=== PATIENT | male | born 1945 | race Caucasian/White ===

== ENCOUNTER 2016-08-27 10:55 | Observation (INO) | payer OTHER, BC ==
[~2016-08-27] VITALS: Ht 185.4 cm; Wt 106.0 kg
[~2016-08-27 10:55] MED LIST: AVELOX400 MG PO; CENTRUM SILVER1 EAC3 PO; ECOTRIN325 MG PO; Flonase BOTH NARES; Humibid LA,Mucinex PO; LISINOPRIL40 MG PO; LOPRESSOR50 MG PO; OMEPRAZOLE40 M1 PO; PROMETHAZINE-CODEINE; SIMVASTATIN40 MG PO; VIAGRA100 MG PO; ZYRTEC10 M2 PO; Zestril,Prinivil PO; predniSONE PO
[2016-08-27 11:29] LABS: EOSINOPHIL COUNT 0.6 K/uL (0-0.3); IMMATURE GRANULOCYTE (%) 0.1 % (0.0-0.7); IMMATURE GRANULOCYTE COUNT 0.1 K/uL; LYMPHOCYTE COUNT 1.6 K/uL (1.0-2.8); MCH 31.9 PG (29.0-34.0); MCHC 34.6 G/DL (30.0-36.0); MCV 92.2 FL (86-99); MONOCYTE (%) 11.1 % (3-12); MONOCYTE COUNT 0.9 K/uL (0-0.8); NEUTROPHIL (%) 59.9 % (45-76); NEUTROPHIL COUNT 4.8 K/uL (1.8-6.4); PLATELET COUNT 182 K/uL (156-360); RBC DIS.WIDTH-CV 12.2 % (11.8-14.6); RBC DIS.WIDTH-SD 40.3 % (39-53); RED BLOOD COUNT 4.99 M/uL (4.00-5.50)
[2016-08-27 11:39] LABS: PROTHROMBIN TIME 10.3 (9.2-11.2); PTT 27.1 (25-32)
[2016-08-27 11:42] LABS: CHLORIDE 105 mEq/L (99-109); POTASSIUM 4.4 mEq/L (3.7-5.4); SODIUM 140 mEq/L (136-147)
[2016-08-27 11:43] LABS: MAGNESIUM 2.1 mg/dL (1.3-2.7)
[2016-08-27 11:44] LABS: GLUCOSE 97 mg/dL (70-99)
[2016-08-27 11:46] LABS: ANION GAP 9 MEQ/L (2-14)
[2016-08-27 11:48] LABS: GFR ESTIMATE (CALCULATED) > 59 mL/min/
[2016-08-27 11:49] LABS: UREA NITROGEN (BUN) 21 mg/dL (9-23)
[2016-08-27 11:50] LABS: TROP-I INTERPRETATION NEGATIVE; TROPONIN-I < 0.01 ng/mL (0.0-0.30)
[2016-08-27] MEDS ORDERED: LISINOPRIL10 MG PO (16:35)
[2016-08-27] MEDS ORDERED: FLONASE16 G1 BOTH NARES (16:36)
[2016-08-27] MEDS ORDERED: METOPROLOL TART50 MG PO (16:38)
[2016-08-27] MEDS ORDERED: PROAIR HFA8.5 GM IH (16:39)
[2016-08-27] MEDS ORDERED: ECONAZOLE NITRA15 GM TP (16:39)
[2016-08-27] MEDS ORDERED: COLCHICINE0.6 M1 PO (16:45)
[2016-08-27] MEDS ORDERED: ALIGN4 MG PO (16:46)
[2016-08-27] MEDS ORDERED: ANTI-ITCH28.4 GM TP (16:46)
[2016-08-27] MEDS ORDERED: SINUS RINSE PR1 EACH BOTH NARES (16:47)
[2016-08-27 19:12] LABS: TROP-I INTERPRETATION NEGATIVE; TROPONIN-I < 0.01 ng/mL (0.0-0.30)
[2016-08-27 20:25] VITALS: BP 153/67
[2016-08-28 00:04] VITALS: BP 120/59
[2016-08-28 00:56] LABS: TROP-I INTERPRETATION NEGATIVE; TROPONIN-I < 0.01 ng/mL (0.0-0.30)
[2016-08-28 04:10] VITALS: BP 126/67
[2016-08-28 07:15] LABS: HDL CHOLESTEROL 26 MG/DL (Desirable>=40); LDL CHOLESTEROL 41 mg/dL (Desirable<100); NON-HDL CHOLESTEROL 56 mg/dL (Desirable<160); TOTAL CHOLESTEROL 82 mg/dL (Desirable<200); TRIGLYCERIDES 74 MG/DL (Normal: <150)
[2016-08-28 11:08] VITALS: BP 190/81
[2016-08-28 11:53] VITALS: BP 156/70
[2016-08-28 12:24] VITALS: BP 172/76
[2016-08-28] MEDS ORDERED: NITROSTAT0.4 MG SL (12:58)
[2016-08-28] MEDS ORDERED: LISINOPRIL10 MG PO (12:58)
== END 2016-08-28 14:42 | disposition home or self-care (01) ==
LOC: EME 10:55 → EDOF 15:32 → 5WEST 16:40
PROVIDERS: Emergency Medicine; Hospitalist
DX: R07.9 Chest pain, unspecified (principal); I10 Essential (primary) hypertension; I25.10 Atherosclerotic heart disease of native coronary artery without angina pectoris; Z95.1 Presence of aortocoronary bypass graft; E78.5 Hyperlipidemia, unspecified; I45.10 Unspecified right bundle-branch block; Z87.891 Personal history of nicotine dependence; Z82.49 Family history of ischemic heart disease and other diseases of the circulatory system; Z88.0 Allergy status to penicillin; Z88.1 Allergy status to other antibiotic agents; Z91.040 Latex allergy status; Z88.8 Allergy status to other drugs, medicaments and biological substances
CPT/HCPCS: 71010; 71275; 80048; 80061; 83735; 84484; 85025; 85610; 85730; 93005; 99281; 99285; G0378; J0360; J1650; J7030; S0028

== ENCOUNTER 2016-12-22 09:33 | Inpatient (IN) | payer OTHER, BC ==
[~2016-12-22] VITALS: Ht 185.4 cm; Wt 103.1 kg
[~2016-12-22 09:33] MED LIST changes: +ALIGN4 MG PO; +ANTI-ITCH28.4 GM TP; +COLCHICINE0.6 M1 PO; +ECONAZOLE NITRA15 GM TP; +FLONASE16 G1 BOTH NARES; +LISINOPRIL10 MG PO; +METOPROLOL TART50 MG PO; +NITROSTAT0.4 MG SL; +PROAIR HFA8.5 GM IH; +SINUS RINSE PR1 EACH BOTH NARES
[2016-12-22] MEDS ORDERED: PROSTATE 2.4 C1 EACH PO (11:24)
[2016-12-22] MEDS ORDERED: FLUDROCORTISON0.1 M1 PO (11:25)
[2016-12-22 11:28] LABS: EOSINOPHIL (%) 2.5 % (0-5); EOSINOPHIL COUNT 0.3 K/uL (0-0.3); HEMATOCRIT 30.2 % (38.0-50.0); IMMATURE GRANULOCYTE (%) 0.9 % (0.0-0.7); IMMATURE GRANULOCYTE COUNT 0.1 K/uL; INSTRUMENT ABS NEUTROPHIL CT 7.9 K/uL; LYMPHOCYTE COUNT 0.8 K/uL (1.0-2.8); MCH 33.9 PG (29.0-34.0); MCHC 33.4 G/DL (30.0-36.0); MCV 101.3 FL (86-99); MEAN PLAT.VOLUME 9.5 uM^3 (9.0-12.4); MONOCYTE (%) 8.2 % (3-12); MONOCYTE COUNT 0.8 K/uL (0-0.8); NEUTROPHIL (%) 79.8 % (45-76); NEUTROPHIL COUNT 7.9 K/uL (1.8-6.4); PLATELET COUNT 218 K/uL (156-360); RBC DIS.WIDTH-CV 13.9 % (11.8-14.6); RBC DIS.WIDTH-SD 46.6 % (39-53); RED BLOOD COUNT 2.98 M/uL (4.00-5.50); WHITE BLOOD COUNT 9.9 K/uL (4.1-10.2)
[2016-12-22 11:46] LABS: CHLORIDE 107 mEq/L (99-109); POTASSIUM 4.5 mEq/L (3.7-5.4); SODIUM 139 mEq/L (136-147)
[2016-12-22 11:48] LABS: GLUCOSE 105 mg/dL (70-99)
[2016-12-22 11:49] LABS: ANION GAP 8 MEQ/L (2-14)
[2016-12-22 11:50] LABS: TOTAL BILIRUBIN 2.2 mg/dL (0.0-1.0)
[2016-12-22 11:51] LABS: ALKALINE PHOSPHATASE 132 IU/L (3-129)
[2016-12-22 11:52] LABS: GFR ESTIMATE (CALCULATED) > 59 mL/min/
[2016-12-22 11:53] LABS: UREA NITROGEN (BUN) 26 mg/dL (9-23)
[2016-12-22 12:14] LABS: ADD MIUA? NO; BILIRUBIN NEGATIVE; BLOOD NEGATIVE; COLOR YELLOW ((YELLOW)); GLUCOSE (STRIP) NEGATIVE; KETONES NEGATIVE; LEUKOCYTES NEGATIVE; NITRITE NEGATIVE; PROTEIN (STRIP) NEGATIVE; SPECIFIC GRAVITY 1.012 (1.000-1.030); UCUL ADDED? NO
[2016-12-22] MEDS ORDERED: LISINOPRIL5 MG PO (14:05)
[2016-12-22 15:08] VITALS: BP 149/78
[2016-12-22 18:00] VITALS: BP 126/56; BP 149/63; BP 98/55
[2016-12-23] VITALS (7 sets, daily range): BP systolic 80–166; BP diastolic 47–74
[2016-12-23 08:15] LABS: ALKALINE PHOSPHATASE 130 IU/L (3-129); ANION GAP 8 MEQ/L (2-14); CHLORIDE 107 MEQ/L (99-109); GFR ESTIMATE (CALCULATED) > 59 mL/min/; GLUCOSE 105 mg/dL (70-99); POTASSIUM 4.1 MEQ/L (3.7-5.4); SAMPLE HEMOLYSIS CHECK 0; SAMPLE ICTERIC CHECK 1; SAMPLE LIPEMIA CHECK 0; SODIUM 138 MEQ/L (136-147); UREA NITROGEN (BUN) 16 mg/dL (9-23)
[2016-12-23 08:46] LABS: TROP-I INTERPRETATION NEGATIVE; TROPONIN-I < 0.01 ng/mL (0.0-0.30)
[2016-12-23 09:57] LABS: FREE T3 2.9 pg/mL (2.3-4.2)
[2016-12-23 11:23] LABS: HBSG INDEX 0.25; HPCA INDEX 0.17
[2016-12-23 11:25] LABS: ANTI-HEPATITIS A VIRUS (IGM) Nonreactive; ANTI-HEPATITIS B CORE (IGM) Nonreactive; HBC IgM INDEX 0.07
[2016-12-23 13:16] LABS: HEMATOCRIT 28.8 % (38.0-50.0); IMM.RETIC FRACTION 37.5 % (3-19); MCV 104.3 FL (86-99); RETIC HGB EQUIVALENT 39.8 (28-36); RETICULOCYTE COUNT 10.7 % (0.5-1.8)
[2016-12-23 13:42] LABS: TROP-I INTERPRETATION NEGATIVE; TROPONIN-I < 0.01 ng/mL (0.0-0.30)
[2016-12-23 13:58] LABS: IRON 186 MCG/DL (35-150)
[2016-12-23 14:10] LABS: FERRITIN 810 NG/ML (22-322)
[2016-12-23 15:21] LABS: MCH 34.4 PG (29.0-34.0); RBC DIS.WIDTH-CV 15.2 % (11.8-14.6); RBC DIS.WIDTH-SD 52.4 % (39-53); RED BLOOD COUNT 2.73 M/uL (4.00-5.50); WHITE BLOOD COUNT 10.2 K/uL (4.1-10.2)
[2016-12-23 15:58] LABS: ABS NEUTROPHIL COUNT 9.4; ANISOCYTOSIS 1+; ATYPICAL LYMPHOCYTE 0.9 %; BAND NEUTROPHILS 0.9 % (0-8.0); BASOPHILS 0.9 %; BURR CELLS 2+; EOSINOPHIL ABS CT 0; HEMATOLOGY COMMENT 1 SN; INSTRUMENT ABS NEUTROPHIL CT 8.7 K/uL; LYMPHOCYTES 4.3 % (15.0-45.0); MACROCYTES 1+; OVALOCYTES 1+; PLAT.SUFFICIENCY ADEQUATE; POIKILOCYTOSIS 1+; POLYCHROMASIA 2+; SEG.NEUTROPHILS 91.3 % (46.0-76.0)
[2016-12-23 16:00] LABS: PLATELET CLUMPS PRESENT - PLATELET C
[2016-12-23 20:51] LABS: DIRECT BILIRUBIN 0.6 mg/dL (0.0-0.3); IMMUNOGLOBULIN A 331 MG/DL (40-350); IMMUNOGLOBULIN G 931 MG/DL (650-1600); IMMUNOGLOBULIN M 44 MG/DL (50-300)
[2016-12-23 20:54] LABS: TROP-I INTERPRETATION NEGATIVE; TROPONIN-I < 0.01 ng/mL (0.0-0.30)
[2016-12-24 00:20] VITALS: BP 126/58
[2016-12-24 04:30] VITALS: BP 128/60
[2016-12-24 07:02] LABS: EOSINOPHIL (%) 6.1 % (0-5); EOSINOPHIL COUNT 0.5 K/uL (0-0.3); HEMATOCRIT 24.1 % (38.0-50.0); IMMATURE GRANULOCYTE (%) 0.9 % (0.0-0.7); IMMATURE GRANULOCYTE COUNT 0.1 K/uL; INSTRUMENT ABS NEUTROPHIL CT 5.5 K/uL; LYMPHOCYTE COUNT 1.2 K/uL (1.0-2.8); MCH 34.5 PG (29.0-34.0); MCHC 32.8 G/DL (30.0-36.0); MCV 105.2 FL (86-99); MEAN PLAT.VOLUME 9.6 uM^3 (9.0-12.4); MONOCYTE (%) 7.9 % (3-12); MONOCYTE COUNT 0.6 K/uL (0-0.8); NEUTROPHIL (%) 70.2 % (45-76); NEUTROPHIL COUNT 5.5 K/uL (1.8-6.4); PLATELET COUNT 189 K/uL (156-360); RBC DIS.WIDTH-CV 16.2 % (11.8-14.6); RBC DIS.WIDTH-SD 55.9 % (39-53); RED BLOOD COUNT 2.29 M/uL (4.00-5.50); WHITE BLOOD COUNT 7.9 K/uL (4.1-10.2)
[2016-12-24 07:33] VITALS: BP 128/65
[2016-12-24 07:50] VITALS: BP 123/65; BP 142/69; BP 81/45
[2016-12-24 07:56] LABS: ALKALINE PHOSPHATASE 109 IU/L (3-129); ANION GAP 9 MEQ/L (2-14); CHLORIDE 107 MEQ/L (99-109); GFR ESTIMATE (CALCULATED) > 59 mL/min/; GLUCOSE 103 mg/dL (70-99); POTASSIUM 4.1 MEQ/L (3.7-5.4); SAMPLE HEMOLYSIS CHECK 0; SAMPLE ICTERIC CHECK 1; SAMPLE LIPEMIA CHECK 0; SODIUM 139 MEQ/L (136-147); TOTAL BILIRUBIN 2.7 MG/DL (0.0-1.0); UREA NITROGEN (BUN) 18 mg/dL (9-23)
[2016-12-24 12:12] LABS: EOSINOPHIL (%) 0.7 % (0-5); EOSINOPHIL COUNT 0.1 K/uL (0-0.3); IMMATURE GRANULOCYTE COUNT 0.1 K/uL; INSTRUMENT ABS NEUTROPHIL CT 8.5 K/uL; LYMPHOCYTE COUNT 0.5 K/uL (1.0-2.8); MCH 34.9 PG (29.0-34.0); MCHC 32.8 G/DL (30.0-36.0); MCV 106.4 FL (86-99); MEAN PLAT.VOLUME 9.3 uM^3 (9.0-12.4); MONOCYTE (%) 2.1 % (3-12); MONOCYTE COUNT 0.2 K/uL (0-0.8); NEUTROPHIL (%) 90.3 % (45-76); NEUTROPHIL COUNT 8.5 K/uL (1.8-6.4); NRBC (%) 0.4 /100 WBC (0-0); PLATELET COUNT 203 K/uL (156-360); RBC DIS.WIDTH-CV 16.6 % (11.8-14.6); RBC DIS.WIDTH-SD 58.4 % (39-53); RED BLOOD COUNT 2.35 M/uL (4.00-5.50); WHITE BLOOD COUNT 9.4 K/uL (4.1-10.2)
[2016-12-24 12:29] VITALS: BP 139/72
== END 2016-12-24 14:38 | disposition short-term general hospital (02) | DRG 312 ==
LOC: EME 09:33 → EDOF 13:52 → 5WEST 13:52 → 4EAST 12-23 13:40
PROVIDERS: Hospitalist; Internal Medicine Hematology & Oncology; Internal Medicine Nephrology; Nurse Practitioner Family
DX: I95.1 Orthostatic hypotension (principal); R17 Unspecified jaundice; D64.9 Anemia, unspecified; R07.89 Other chest pain; M48.02 Spinal stenosis, cervical region; D59.1 Other autoimmune hemolytic anemias; G90.9 Disorder of the autonomic nervous system, unspecified; I10 Essential (primary) hypertension; I25.10 Atherosclerotic heart disease of native coronary artery without angina pectoris; E78.5 Hyperlipidemia, unspecified; I73.00 Raynaud's syndrome without gangrene; M10.9 Gout, unspecified; R00.0 Tachycardia, unspecified; I45.10 Unspecified right bundle-branch block; M46.92 Unspecified inflammatory spondylopathy, cervical region; M50.322 Other cervical disc degeneration at C5-C6 level; M50.323 Other cervical disc degeneration at C6-C7 level; R70.1 Abnormal plasma viscosity; N40.0 Benign prostatic hyperplasia without lower urinary tract symptoms; Z95.1 Presence of aortocoronary bypass graft; Z90.49 Acquired absence of other specified parts of digestive tract; Z88.2 Allergy status to sulfonamides; Z87.891 Personal history of nicotine dependence
CPT/HCPCS: 71010; 72141; 72156; 80053; 80074; 80400; 81003; 82088 90; 82248; 82272; 82533 91; 82607; 82728; 82746; 82784 90; 82977; 83010 90; 83540; 83615; 84244 90; 84439; 84443; 84466; 84481; 84484; 85007; 85014; 85018; 85025; 85025 91; 85027; 85045; 86860; 86870; 86880; 86900; 86901; 93005; 93306; 99202; 99281; 99285; G0378; J0834; J1100; J7030

== ENCOUNTER 2017-01-29 09:37 | Inpatient (IN) | payer OTHER, BC ==
[~2017-01-29] VITALS: Ht 2700 cm; Wt 89.9 kg
[~2017-01-29 09:37] MED LIST changes: +FLUDROCORTISON0.1 M1 PO; +LISINOPRIL5 MG PO; +PROSTATE 2.4 C1 EACH PO
[2017-01-29] MEDS ORDERED: MIDODRINE HCL5 MG PO (10:23)
[2017-01-29 10:54] LABS: EOSINOPHIL (%) 0.6 % (0-5); HEMATOCRIT 37.6 % (38.0-50.0); IMMATURE GRANULOCYTE (%) 0.6 % (0.0-0.7); INSTRUMENT ABS NEUTROPHIL CT 6.1 K/uL; LYMPHOCYTE COUNT 0.5 K/uL (1.0-2.8); MCH 34.5 PG (29.0-34.0); MCHC 33.8 G/DL (30.0-36.0); MEAN PLAT.VOLUME 8.7 uM^3 (9.0-12.4); MONOCYTE (%) 5.7 % (3-12); MONOCYTE COUNT 0.4 K/uL (0-0.8); NEUTROPHIL (%) 86.4 % (45-76); NEUTROPHIL COUNT 6.1 K/uL (1.8-6.4); PLATELET COUNT 162 K/uL (156-360); RBC DIS.WIDTH-SD 45.5 % (39-53); RED BLOOD COUNT 3.68 M/uL (4.00-5.50)
[2017-01-29 10:55] LABS: MCV 102.2 FL (86-99)
[2017-01-29 11:06] LABS: CHLORIDE 103 mEq/L (99-109); POTASSIUM 3.9 mEq/L (3.7-5.4); SODIUM 135 mEq/L (136-147)
[2017-01-29 11:08] LABS: GLUCOSE 125 mg/dL (70-99)
[2017-01-29 11:09] LABS: ANION GAP 8 MEQ/L (2-14)
[2017-01-29 11:09] LABS: ADD MIUA? NO; BILIRUBIN NEGATIVE; BLOOD NEGATIVE; COLOR YELLOW ((YELLOW)); GLUCOSE (STRIP) NEGATIVE; KETONES NEGATIVE; LEUKOCYTES NEGATIVE; NITRITE NEGATIVE; PROTEIN (STRIP) NEGATIVE; SPECIFIC GRAVITY 1.009 (1.000-1.030); UCUL ADDED? NO; UROBILINOGEN 0.2 MG/DL (0.2-1.0)
[2017-01-29 11:10] LABS: TOTAL BILIRUBIN 0.5 mg/dL (0.0-1.0)
[2017-01-29 11:12] LABS: ALKALINE PHOSPHATASE 85 IU/L (3-129); GFR ESTIMATE (CALCULATED) > 59 mL/min/
[2017-01-29 11:13] LABS: UREA NITROGEN (BUN) 17 mg/dL (9-23)
[2017-01-29 11:17] LABS: TROP-I INTERPRETATION NEGATIVE; TROPONIN-I 0.03 ng/mL (0.0-0.30)
[2017-01-29 14:02] LABS: INTER. NORMALIZED RATIO 1.1; PROTHROMBIN TIME 11.2 (9.2-11.2); PTT 26.8 (25-32)
[2017-01-29] MEDS ORDERED: PROAMATINE2.5 MG PO (15:01)
[2017-01-29] MEDS ORDERED: MYCOSTATIN 100,60 ML PO (15:04)
[2017-01-29] MEDS ORDERED: PREDNISONE5 MG PO (15:05)
[2017-01-29 17:58] VITALS: BP 145/73
[2017-01-29 21:01] VITALS: BP 168/70
[2017-01-29 21:26] LABS: FIBRINOGEN 523 MG/DL (160-450)
[2017-01-30] VITALS (8 sets, daily range): BP systolic 145–194; BP diastolic 44–91
[2017-01-30 07:30] LABS: INTERNAL CONTROL VALID? YES
[2017-01-30 12:02] LABS: POC NON-PRINT COM 1 ND
[2017-01-30 14:32] LABS: BASE EXCESS 0.9 mEq/L (-3 to +3); BICARBONATE 23.1 mEq/L (22-26); CARBOXY HGB 2.8 % (0-5); METHEMOGLOBIN 1.9 % (0-1.5); PCO2 29 mm Hg (35-45); PO2 54 mm Hg (80-100); pH 7.51 (7.35-7.45)
[2017-01-30 14:33] LABS: COMMENTS - BLOOD GASES A+C+; DEVICE NC; O2 FLOW 4 L/MIN; SITE RR; TOTAL RESP RATE 24 resp/min
[2017-01-31 00:52] VITALS: BP 162/76
[2017-01-31 05:55] VITALS: BP 185/89
[2017-01-31 06:15] LABS: HEMATOCRIT 33.4 % (38.0-50.0); MCH 34.2 PG (29.0-34.0); MCHC 32.9 G/DL (30.0-36.0); MCV 103.7 FL (86-99); PLATELET COUNT 168 K/uL (156-360); RBC DIS.WIDTH-CV 12.1 % (11.8-14.6); RBC DIS.WIDTH-SD 46.2 % (39-53); RED BLOOD COUNT 3.22 M/uL (4.00-5.50); WHITE BLOOD COUNT 4.9 K/uL (4.1-10.2)
[2017-01-31 06:28] LABS: ANION GAP 9 MEQ/L (2-14); CHLORIDE 108 MEQ/L (99-109); GFR ESTIMATE (CALCULATED) > 59 mL/min/; MAGNESIUM 1.8 mg/dl (1.3-2.7); POTASSIUM 3.9 MEQ/L (3.7-5.4); SAMPLE HEMOLYSIS CHECK 0; SAMPLE ICTERIC CHECK 0; SAMPLE LIPEMIA CHECK 0; SODIUM 140 MEQ/L (136-147); UREA NITROGEN (BUN) 11 mg/dL (9-23)
[2017-01-31 06:33] LABS: GLUCOSE 86 mg/dL (70-99)
[2017-01-31 07:49] LABS: INTERNAL CONTROL VALID? YES
[2017-01-31 07:50] LABS: INTERNAL CONTROL VALID? YES
[2017-01-31 08:11] VITALS: BP 178/87
[2017-01-31 08:40] LABS: INTER. NORMALIZED RATIO 1.1; PROTHROMBIN TIME 11.4 (9.2-11.2); PTT 59.7 (25-32)
[2017-01-31 11:47] VITALS: BP 180/87
[2017-01-31 15:00] VITALS: BP 188/88
[2017-01-31 18:02] LABS: DIRECT BILIRUBIN 0.1 mg/dL (0.0-0.3); TOTAL BILIRUBIN 0.5 MG/DL (0.0-1.0)
[2017-01-31 19:10] VITALS: BP 147/73
[2017-02-01] VITALS (7 sets, daily range): BP systolic 117–162; BP diastolic 58–79
[2017-02-01 07:15] LABS: EOSINOPHIL (%) 2.8 % (0-5); EOSINOPHIL COUNT 0.2 K/uL (0-0.3); HEMATOCRIT 33.4 % (38.0-50.0); IMMATURE GRANULOCYTE (%) 0.6 % (0.0-0.7); INSTRUMENT ABS NEUTROPHIL CT 3.7 K/uL; MCH 33.6 PG (29.0-34.0); MCHC 32.9 G/DL (30.0-36.0); MCV 102.1 FL (86-99); MEAN PLAT.VOLUME 8.9 uM^3 (9.0-12.4); MONOCYTE (%) 9.6 % (3-12); MONOCYTE COUNT 0.5 K/uL (0-0.8); NEUTROPHIL (%) 68.4 % (45-76); NEUTROPHIL COUNT 3.7 K/uL (1.8-6.4); PLATELET COUNT 200 K/uL (156-360); RBC DIS.WIDTH-CV 11.9 % (11.8-14.6); RED BLOOD COUNT 3.27 M/uL (4.00-5.50); WHITE BLOOD COUNT 5.3 K/uL (4.1-10.2)
[2017-02-01 07:32] LABS: INTER. NORMALIZED RATIO 1.2
[2017-02-01 07:41] LABS: PTT 27.5 (25-32)
[2017-02-01 07:43] LABS: ALKALINE PHOSPHATASE 71 IU/L (3-129); ANION GAP 10 MEQ/L (2-14); CHLORIDE 107 MEQ/L (99-109); GFR ESTIMATE (CALCULATED) > 59 mL/min/; GLOBULINS 2.6 G/DL (2.3-3.5); GLUCOSE 92 mg/dL (70-99); POTASSIUM 3.8 MEQ/L (3.7-5.4); SAMPLE HEMOLYSIS CHECK 0; SAMPLE ICTERIC CHECK 0; SAMPLE LIPEMIA CHECK 0; SODIUM 138 MEQ/L (136-147); TOTAL BILIRUBIN 0.4 MG/DL (0.0-1.0); UREA NITROGEN (BUN) 10 mg/dL (9-23)
[2017-02-01 10:27] LABS: BACTERIA RARE /HPF; EPITHELIAL CELLS NONE SEEN /HPF; HYALINE CASTS 0-5 /LPF; MUCUS TRACE /LPF; WHITE BLOOD CELLS 0-5 /HPF (0-5)
[2017-02-02 04:31] VITALS: BP 130/61
[2017-02-02 05:34] LABS: INTER. NORMALIZED RATIO 1.2; PROTHROMBIN TIME 11.8 (9.2-11.2)
[2017-02-02 05:50] LABS: ANION GAP 8 MEQ/L (2-14); CHLORIDE 104 MEQ/L (99-109); GFR ESTIMATE (CALCULATED) > 59 mL/min/; POTASSIUM 4.4 MEQ/L (3.7-5.4); SAMPLE HEMOLYSIS CHECK 0; SAMPLE ICTERIC CHECK 0; SAMPLE LIPEMIA CHECK 0; SODIUM 137 MEQ/L (136-147); UREA NITROGEN (BUN) 14 mg/dL (9-23)
[2017-02-02 05:53] LABS: EOSINOPHIL (%) 0 % (0-5); HEMATOCRIT 33.8 % (38.0-50.0); IMMATURE GRANULOCYTE (%) 0.3 % (0.0-0.7); INSTRUMENT ABS NEUTROPHIL CT 2.8 K/uL; LYMPHOCYTE COUNT 0.4 K/uL (1.0-2.8); MCH 33.4 PG (29.0-34.0); MCHC 33.4 G/DL (30.0-36.0); MONOCYTE (%) 1.8 % (3-12); MONOCYTE COUNT 0.1 K/uL (0-0.8); NEUTROPHIL (%) 85.3 % (45-76); NEUTROPHIL COUNT 2.8 K/uL (1.8-6.4); PLATELET COUNT 245 K/uL (156-360); RBC DIS.WIDTH-CV 11.9 % (11.8-14.6); RBC DIS.WIDTH-SD 43.8 % (39-53); RED BLOOD COUNT 3.38 M/uL (4.00-5.50); WHITE BLOOD COUNT 3.3 K/uL (4.1-10.2)
[2017-02-02 06:40] LABS: GLUCOSE 168 mg/dL (70-99)
[2017-02-02 07:20] VITALS: BP 178/86
[2017-02-02 07:52] LABS: PTT 34.6 (25-32)
[2017-02-02 10:25] LABS: MNPH Specimen Volume 4000 mL (())
[2017-02-02 11:50] VITALS: BP 90/55
[2017-02-02 16:28] VITALS: BP 131/65
[2017-02-02 20:06] VITALS: BP 135/74
[2017-02-02 23:45] VITALS: BP 163/76
[2017-02-03 04:48] VITALS: BP 167/81
[2017-02-03 06:14] LABS: INTER. NORMALIZED RATIO 1.1; PROTHROMBIN TIME 11.6 (9.2-11.2)
[2017-02-03 06:18] LABS: EOSINOPHIL (%) 0 % (0-5); HEMATOCRIT 33.9 % (38.0-50.0); IMMATURE GRANULOCYTE (%) 0.5 % (0.0-0.7); IMMATURE GRANULOCYTE COUNT 0.1 K/uL; INSTRUMENT ABS NEUTROPHIL CT 10.6 K/uL; LYMPHOCYTE COUNT 0.9 K/uL (1.0-2.8); MCH 33.6 PG (29.0-34.0); MCHC 33.9 G/DL (30.0-36.0); MCV 99.1 FL (86-99); MEAN PLAT.VOLUME 9.1 uM^3 (9.0-12.4); MONOCYTE (%) 3.2 % (3-12); MONOCYTE COUNT 0.4 K/uL (0-0.8); NEUTROPHIL (%) 88.8 % (45-76); NEUTROPHIL COUNT 10.6 K/uL (1.8-6.4); PLATELET COUNT 307 K/uL (156-360); RBC DIS.WIDTH-CV 11.8 % (11.8-14.6); RBC DIS.WIDTH-SD 43.2 % (39-53); RED BLOOD COUNT 3.42 M/uL (4.00-5.50)
[2017-02-03 06:45] LABS: ANION GAP 10 MEQ/L (2-14); CHLORIDE 105 MEQ/L (99-109); GFR ESTIMATE (CALCULATED) > 59 mL/min/; GLUCOSE 159 mg/dL (70-99); POTASSIUM 4.4 MEQ/L (3.7-5.4); SAMPLE HEMOLYSIS CHECK 0; SAMPLE ICTERIC CHECK 0; SAMPLE LIPEMIA CHECK 0; SODIUM 138 MEQ/L (136-147); UREA NITROGEN (BUN) 21 mg/dL (9-23)
[2017-02-03 08:25] VITALS: BP 175/90
[2017-02-03] MEDS ORDERED: LOVENOX80 MG/0.8 SC (10:45)
[2017-02-03 11:26] VITALS: BP 132/65
[2017-02-03 13:32] LABS: IFE GEL NO. 76-2
[2017-02-03 16:14] VITALS: BP 141/69
[2017-02-03 19:45] VITALS: BP 155/75
[2017-02-03 23:50] VITALS: BP 173/84
[2017-02-04 04:15] VITALS: BP 131/66
[2017-02-04 05:47] LABS: EOSINOPHIL (%) 0 % (0-5); HEMATOCRIT 33.2 % (38.0-50.0); IMMATURE GRANULOCYTE (%) 0.8 % (0.0-0.7); IMMATURE GRANULOCYTE COUNT 0.1 K/uL; INSTRUMENT ABS NEUTROPHIL CT 10.8 K/uL; LYMPHOCYTE COUNT 1.2 K/uL (1.0-2.8); MCH 33.9 PG (29.0-34.0); MCHC 33.7 G/DL (30.0-36.0); MCV 100.6 FL (86-99); MEAN PLAT.VOLUME 9.1 uM^3 (9.0-12.4); MONOCYTE (%) 6.3 % (3-12); MONOCYTE COUNT 0.8 K/uL (0-0.8); NEUTROPHIL (%) 83.3 % (45-76); NEUTROPHIL COUNT 10.8 K/uL (1.8-6.4); PLATELET COUNT 299 K/uL (156-360); RBC DIS.WIDTH-CV 11.9 % (11.8-14.6); RBC DIS.WIDTH-SD 43.9 % (39-53)
[2017-02-04 06:20] LABS: INTER. NORMALIZED RATIO 1.1; PROTHROMBIN TIME 11.7 (9.2-11.2)
[2017-02-04 07:39] VITALS: BP 145/84
[2017-02-04 07:47] LABS: GLUCOSE 115 mg/dL (70-99)
[2017-02-04 07:48] LABS: GFR ESTIMATE (CALCULATED) > 59 mL/min/
[2017-02-04 07:49] LABS: UREA NITROGEN (BUN) 25 mg/dL (9-23)
[2017-02-04 08:37] LABS: CHLORIDE 106 mEq/L (99-109); POTASSIUM 4.1 mEq/L (3.7-5.4); SODIUM 139 mEq/L (136-147)
[2017-02-04 08:40] LABS: ANION GAP 10 MEQ/L (2-14)
[2017-02-04] MEDS ORDERED: CEFTIN500 MG PO (13:23)
[2017-02-04] MEDS ORDERED: MUCINEX600 MG PO (13:25)
[2017-02-04] MEDS ORDERED: COUMADIN5 MG PO (13:26)
[2017-02-04] MEDS ORDERED: SORE THROAT SP177 M1 MM (13:27)
[2017-02-04] MEDS ORDERED: Ocean Nasal 0.65% BOTH NARES (13:27)
[2017-02-04] MEDS ORDERED: DOCUSATE SODIU100 MG PO (13:28)
[2017-02-04] MEDS ORDERED: PREDNISONE20 MG PO (13:29)
[2017-02-04] MEDS ORDERED: LISINOPRIL20 MG PO (13:36)
[2017-02-04] MEDS ORDERED: ZYRTEC10 M2 PO (13:36)
[2017-02-06 12:03] LABS: PROTEIN C FUNCTIONAL ACTIVITY+ 106 % (70-180); Protein S, Free 111 % normal (57-171)
[2017-02-06 20:55] LABS: Neutrophil Cytoplasmic Aby Negative (Negative)
[2017-02-07 08:23] LABS: ANTITHROMBIN III ACTIVITY+ 86 % activi (80-120)
[2017-02-07 14:30] LABS: ALBUMIN 3.01 G/DL (3.6-4.9); ALBUMIN PERCENT 56.8 %; ALPHA-1 GLOBULIN 0.38 G/DL (0.15-0.40); ALPHA-1 PERCENT 7.2 %; ALPHA-2 GLOBULIN 0.84 G/DL (0.45-0.85); ALPHA-2 PERCENT 15.8 %
[2017-02-07 14:31] LABS: BETA PERCENT 12.9 %; GAMMA PERCENT 7.3 %
== END 2017-02-04 14:40 | disposition home health service (06) | DRG 190 ==
LOC: EME 09:37 → EDOF 15:00 → 4EAST 15:00 → 2EASTP 15:00 → 4EAST 01-30 17:06
PROVIDERS: Emergency Medicine; Hospitalist; Internal Medicine; Internal Medicine Hematology & Oncology; Internal Medicine Pulmonary Disease
DX: J44.0 Chronic obstructive pulmonary disease with (acute) lower respiratory infection (principal); J18.9 Pneumonia, unspecified organism; J96.01 Acute respiratory failure with hypoxia; I26.99 Other pulmonary embolism without acute cor pulmonale; I82.441 Acute embolism and thrombosis of right tibial vein; I82.492 Acute embolism and thrombosis of other specified deep vein of left lower extremity; R04.2 Hemoptysis; D59.1 Other autoimmune hemolytic anemias; I27.2 Other secondary pulmonary hypertension; I08.1 Rheumatic disorders of both mitral and tricuspid valves; E87.70 Fluid overload, unspecified; R51 Headache; I10 Essential (primary) hypertension; E78.5 Hyperlipidemia, unspecified; I25.10 Atherosclerotic heart disease of native coronary artery without angina pectoris; I95.1 Orthostatic hypotension; I73.00 Raynaud's syndrome without gangrene; K21.9 Gastro-esophageal reflux disease without esophagitis; Y95 Nosocomial condition; Z87.891 Personal history of nicotine dependence; Z95.1 Presence of aortocoronary bypass graft; Z79.82 Long term (current) use of aspirin; Z88.0 Allergy status to penicillin; Z88.1 Allergy status to other antibiotic agents; Z88.2 Allergy status to sulfonamides; Z80.0 Family history of malignant neoplasm of digestive organs
CPT/HCPCS: 36600; 70450; 71010; 71020; 71275; 74177; 80048; 80053; 81003; 81015; 81240 90; 81241 90; 82247; 82248; 82272; 82803; 83090 90; 83605; 83615; 83735; 83835 90; 83883 90; 84165; 84484; 85025; 85027; 85240 90; 85300 90; 85303 90; 85305 90; 85306 90; 85384; 85520; 85610; 85613 90; 85730; 85730 90; 86021 90; 86038; 86140; 86146 90; 86147 90; 86334; 87040; 87070; 87205; 87449; 93005; 93306; 93970; 94010; 94644; 94667; 94668; 94799; 99202; 99281; 99285; J0360; J0456; J0692; J0696; J1650; J1940; J2405; J2920; J2930; J7030; J7050; S0028